=== PATIENT | female | born 2000 | race Caucasian/White ===

== ENCOUNTER 2018-09-10 20:10 | Emergency (ER) | payer MEDICAID ==
[~2018-09-10] VITALS: Wt 85.3 kg
[~2018-09-10 20:10] MED LIST: CEPH500C PO; IBUP-1542 PO
[2018-09-10 20:18] VITALS: BP 147/83; PULSE 90; RESP 20
--- NOTE | 2018-09-10 22:03 | ERD ---
ER Documentation Chief Complaint Chief Complaint interm pelvic pain x1wk, no bleed. IUD checked+ WNL. dizzy, tingling R arm HPI She is a 18 years old female with no known past medical history presenting to the clinic bilateral pelvic pain X 1 week. Patient reports pain comes about suddenly and is sporadic in intensity, from 5 out of 10-10 out of 10. Patient admits to taking ibuprofen without resolution during high intensity pain. She admits to associated dizziness and occasional right or left hand numbness that goes away on. Patient describes her pelvic pain similar to her menstrual cycle however worse in intensity and bilateral. Patient reports visiting an urgent care that did a urine that was negative and checked her IUD (in place). Patient denies all the other review of system. ROS All systems reviewed and are negative except as per history of present illness. Medications Home Meds Active Scripts Nitrofurantoin Monohyd Macrocr* (Macrobid*) 100 Mg Capsr, 100 MG PO BID for 7 Days, #14 CAP Prov:KERRY RABAGO PA-C 09/10/18 Ibuprofen* (Motrin*) 600 Mg Tab, 600 MG PO Q6, #30 TAB Prov:DIONICIO FLOOD PA-C 01/16/15 Cephalexin* (Cephalexin*) 500 Mg Capsule, 500 MG PO BID for 5 Days, CAP Prov:VIRAJ RAIN PA-C 09/18/14 Allergies Allergies: Coded Allergies: No Known Drug Allergies (Verified Allergy, Unknown, 01/16/15) PMhx/Soc Medical and Surgical Hx: pt denies Medical Hx, pt denies Surgical Hx History of Surgery: No Anesthesia Reaction: No Hx Neurological Disorder: No Hx Respiratory Disorders: No Hx Cardiac Disorders: No Hx Psychiatric Problems: No Hx Miscellaneous Medical Probl: No Hx Alcohol Use: No Hx Substance Use: No Hx Tobacco Use: No Smoking Status: Never smoker FmHx Family History: No diabetes, No coronary disease, No other Physical Exam Vitals Vital Signs Date Temp Pulse Resp B/P (MAP) Pulse Ox O2 O2 Flow FiO2 Time Delivery Rate 09/10/18 99.2 90 20 147/83 100 20:18 (104) Physical Exam Const: No acute distress Head: Atraumatic Resp: Clear to auscultation bilaterally Cardio: Regular rate and rhythm, no murmurs Abd: Soft, non tender, non distended. Normal bowel sounds. Suprapubic tenderness. Left and right inguinal tenderness. Skin: No petechiae or rashes Back: No midline or flank tenderness Neur: Awake and alert Psych: Normal Mood and Affect Results 24 hrs Laboratory Tests Test 09/10/18 22:00 09/10/18 22:08 Urine Color YELLOW Urine Clarity CLOUDY Urine pH 6.0 Urine Specific [place] 1.018 Urine Ketones NEGATIVE mg/dL Urine Nitrite NEGATIVE mg/dL Urine Bilirubin NEGATIVE mg/dL Urine Urobilinogen 1+ mg/dL Urine Leukocyte Esterase 2+ Paty/ul Urine Microscopic RBC 8 /HPF Urine Microscopic WBC 8 /HPF Urine Squamous Epithelial Cells FEW /HPF Urine Bacteria FEW /HPF Urine Hemoglobin NEGATIVE mg/dL Urine Glucose NEGATIVE mg/dL Urine Total Protein NEGATIVE mg/dl POC Beta HCG, Qualitative NEGATIVE Procedures/MDM Patient was seen and evaluated for pelvic pain. Ultrasound unremarkable. Urinalysis shows leukocyte esterase, which significant for UTI. Patient is stable and ready for discharge. Patient will be discharged with Macrobid. Departure Diagnosis: Primary Impression: UTI (urinary tract infection) Urinary tract infection type: acute cystitis Hematuria presence: without hematuria Qualified Codes: N30.00 - Acute cystitis without hematuria Condition: Stable Patient Instructions: Pelvic Pain, Unknown Cause, Understanding Urinary Tract Infections (UTIs) Referrals: [facility] Additional Instructions: Patient advised to return to the ED immediately for new or worsening symptoms. Patient advised to follow up with primary care provider in the next 24-48 hours. Patient verbalized understanding and agrees with treatment plan and course of action. If patient has no primary care they may follow up with [facility] [address] [place] [id number] or [facility] [address] [place] [address] or [facility] [address] [place] [address] KERRY RABAGO PA-C September 10, 2018 22:03
[2018-09-10] MEDS ORDERED: NITR-58 PO (23:37)
== END 2018-09-10 23:48 | disposition home or self-care (01) ==
LOC: FTE 20:10
DX: N30.00 Acute cystitis without hematuria (principal)
CPT/HCPCS: 76830; 76856; 81001; 81025